=== PATIENT | female | born 1945 | race Caucasian/White ===

== ENCOUNTER → 2018-02-14 | Outpatient (CLI) | payer MEDICARE ==
--- NOTE | 2018-02-14 16:11 | CT ---
EXAMINATION TYPE: CT abdomen pelvis w con DATE OF EXAM: 02/14/2018 HISTORY: Abdominal pain from possible adhesions CT DLP: 527.1mGycm Automated Exposure Control for Dose Reduction was Utilized. CONTRAST: CT scan of the abdomen and pelvis is performed with oral and with IV Contrast, patient injected with 100 mL of Isovue 300. COMPARISON: CT abdomen and pelvis July 18, 2011. FINDINGS: LUNG BASES: No significant abnormality is appreciated. LIVER/GB: Contracted gallbladder incidentally noted. PANCREAS: No significant abnormality is seen. SPLEEN: No significant abnormality is seen. ADRENALS: No significant abnormality is seen. KIDNEYS: No significant abnormality is seen. BOWEL: The oral contrast reaches level of left colon. There is no suspicious small or large bowel dil atation. Surgical sutures are seen at level of sigmoid colon axial image 58. There are occasional div erticula scattered throughout the colon. No CT evidence for acute diverticulitis. UTERUS/ADNEXA: Uterus is surgically absent or markedly atrophic in appearance. A few scattered pelvic phleboliths are seen LYMPH NODES: No greater than 1cm abdominal or pelvic lymph nodes are appreciated. OSSEOUS STRUCTURES: There is facet arthropathy lower lumbar levels. OTHER: There is small fat-containing incisional hernia anterior abdominal wall axial image 45 noted o n current study. This is new from prior exam. There is mild calcified plaque of the infrarenal abdomi nal aorta extending into branch vessels. IMPRESSION: No bowel obstruction is seen. Small fat-containing incisional hernia in the ventral wall otherwise no suspicious findings identified to account for patient's symptoms.
== END | disposition home or self-care (01) ==
LOC: RADCTMAIN 13:54
PROVIDERS: ATTEND Family Medicine
DX: K43.2 Incisional hernia without obstruction or gangrene (principal); R10.9 Unspecified abdominal pain
CPT/HCPCS: 82565; 84520; 74177; 36415; Q9967

== ENCOUNTER → 2023-07-09 | Outpatient (CLI) | payer MEDICARE ==
--- NOTE | 2023-07-09 15:17 | US ---
EXAMINATION TYPE: US kidneys/renal and bladder DATE OF EXAM: 07/09/2023 COMPARISON: NONE CLINICAL INDICATION: Female, 77 years old with history of N18.30 CDK; Abnormal labs; Patient denies a ny signs or symptoms EXAM MEASUREMENTS: Right Kidney: 9.2 x 4.0 x 4.4 cm Left Kidney: 10.0 x 4.3 x 4.7 cm Post Void Residual Volume: NA mL Right Kidney: wnl Left Kidney: wnl Bladder: Not fully distended Bilateral Jets seen: Not able to assess Normal Post Void Residual: Not able to assess There is no evidence for hydronephrosis at this point in time. No nephrolithiasis is seen. No rayne s are identified. IMPRESSION: 1. No renal ultrasound abnormality.
== END | disposition home or self-care (01) ==
LOC: RADUSWWP 12:20
PROVIDERS: ATTEND Internal Medicine Nephrology
DX: N18.30 Chronic kidney disease, stage 3 unspecified (principal)
CPT/HCPCS: 76770

== ENCOUNTER → 2024-05-04 | Outpatient (CLI) | payer MEDICARE ==
--- NOTE | 2024-05-04 14:37 | US ---
EXAMINATION TYPE: US bladder DATE OF EXAM: 05/04/2024 COMPARISON: NONE CLINICAL INDICATION: Female, 78 years old with history of R39.81 URINARY INCONSISTENCY; sudden urgenc y and then can only void very little, ongoing for this past year TECHNIQUE: Grayscale and color doppler imaging of the bilateral kidneys and urinary bladder. FINDINGS: EXAM MEASUREMENTS: Post Void Residual Volume: 116 mL [employer] NOTES: Patient attempted to have bladder fill more then had urgency for a bowel movement. patient said she voided as much as she could Normal Post Void Residual (less than 50ml): no, bladder kept filling IMPRESSION: Large postvoid residual. [facility], , 05/04/2024 2:35 PM
== END | disposition home or self-care (01) ==
LOC: RADUSWWP 12:01
PROVIDERS: ATTEND Family Medicine
DX: R39.81 Functional urinary incontinence (principal); R39.198 Other difficulties with micturition
CPT/HCPCS: 76857

== ENCOUNTER → 2024-06-25 | Outpatient (CLI) | payer MEDICARE ==
--- NOTE | 2024-06-25 13:32 | XR ---
EXAMINATION TYPE: XR chest 2V DATE OF EXAM: 06/25/2024 1:01 PM COMPARISON: 05/14/2011 CLINICAL INDICATION: Female, 78 years old with history of cough, R05.9, , TECHNIQUE: Frontal and lateral views FINDINGS: Heart borderline enlarged. Aorta and pulmonary vasculature within normal limits. Old healed right-lucía ed rib fracture deformities. No consolidation or pleural effusion. IMPRESSION: Borderline cardiomegaly. No acute process seen. [facility], , 06/25/2024 1:30 PM
== END | disposition home or self-care (01) ==
LOC: RADXRMAIN 12:44
PROVIDERS: ATTEND Family Medicine
DX: I51.7 Cardiomegaly (principal); R05.9 Cough, unspecified
CPT/HCPCS: 71046